=== PATIENT | male | born 1960 | race Caucasian/White ===

== ENCOUNTER 2017-05-31 17:17 | Inpatient (IN) | payer MEDICAID ==
[~2017-05-31] VITALS: Ht 180.3 cm; Wt 96.3 kg
[2017-05-31 18:14] LABS: microscopic required? YES; urine erythrocyte 3+ (NEGATIVE)
[2017-05-31 18:18] LABS: BASOPHIL % 0.1 % (0-2); PLATELET COUNT 146 x10^3mcL (130-400)
[2017-05-31 18:20] LABS: RED CELL DISTRIBUTION WIDTH 15.4 % (11.5-14.5)
[2017-05-31 18:22] LABS: CALCIUM 7.6 mg/dL (8.5-10.1); CARBON DIOXIDE 24.6 mmol/L (21-32); CHLORIDE SERUM 103 mmol/L (98-107); CREATININE SERUM 1.1 mg/dL (0.7-1.3); GFR1 > 60 mL/min; GLUCOSE SERUM 108 mg/dL (74-106); SODIUM SERUM 131 mmol/L (136-145)
[2017-05-31 18:27] LABS: ALBUMIN 1.9 g/dL (3.4-5.0); ALKALINE PHOSPHATASE 126 U/L (46-116); ALT/SGPT 34 U/L (16-63); AST/SGOT 53 U/L (15-37); BILIRUBIN TOTAL 2.59 mg/dL (0.20-1.00); TOTAL PROTEIN, SERUM 7.4 g/dL (6.4-8.2)
[2017-05-31 20:35] VITALS: BP 170/83
[2017-05-31 20:37] LABS: AMPHETAMINE QUAL UR POSITIVE (NEG <=1000)
[2017-05-31 20:40] LABS: MAGNESIUM 1.9 mg/dL (1.8-2.4); PHOSPHOROUS 1.7 mg/dL (2.5-4.9)
[2017-05-31 20:43] LABS: CHOLESTEROL/HDL RATIO 4.2
[2017-05-31 20:45] LABS: T3 TOTAL 0.76 ng/mL
[2017-05-31 20:50] LABS: FREE T4 1.22 ng/dL (0.76-1.46); FREE THYROXINE INDEX 2.1 ug/dL (1.4-4.5); T4(THYROXINE) 6.2 ug/dL (4.7-13.3)
[2017-06-01 05:30] VITALS: BP 138/67
[2017-06-01 07:22] LABS: CALCIUM 7.3 mg/dL (8.5-10.1); CARBON DIOXIDE 21.3 mmol/L (21-32); CHLORIDE SERUM 104 mmol/L (98-107); GFR1 > 60 mL/min; GLUCOSE SERUM 100 mg/dL (74-106); MAGNESIUM 1.7 mg/dL (1.8-2.4); PHOSPHOROUS 2.2 mg/dL (2.5-4.9); SODIUM SERUM 131 mmol/L (136-145)
[2017-06-01 08:21] LABS: PLATELET COUNT 136 x10^3mcL (130-400); RED CELL DISTRIBUTION WIDTH 15.5 % (11.5-14.5)
[2017-06-01 09:35] VITALS: BP 123/70
[2017-06-01 10:54] LABS: BAND NEUTROPHIL 2 % (0-10); BASOPHIL 0 % (0-2); MONOCYTE 11 % (0-7); PLATELET MORPHOLOGY PLATELETS NORMAL; SEGMENTED NEUTROPHILS 83 % (37-75)
[2017-06-01 17:36] VITALS: BP 114/61
[2017-06-01 21:50] VITALS: BP 124/66
[2017-06-01 22:50] VITALS: BP 130/70
[2017-06-02 05:56] VITALS: BP 103/51
[2017-06-02 06:23] LABS: BASOPHIL % 0.1 % (0-2); PLATELET COUNT 142 x10^3mcL (130-400)
[2017-06-02 06:41] LABS: RED CELL DISTRIBUTION WIDTH 15.8 % (11.5-14.5)
[2017-06-02 06:48] LABS: CALCIUM 7.2 mg/dL (8.5-10.1); CARBON DIOXIDE 24.8 mmol/L (21-32); CHLORIDE SERUM 107 mmol/L (98-107); CREATININE SERUM 0.9 mg/dL (0.7-1.3); GFR1 > 60 mL/min; GLUCOSE SERUM 123 mg/dL (74-106); PHOSPHOROUS 1.8 mg/dL (2.5-4.9); POTASSIUM SERUM 3.9 mmol/L (3.5-5.1); SODIUM SERUM 135 mmol/L (136-145)
[2017-06-02 09:41] VITALS: BP 117/56
[2017-06-02 15:05] VITALS: Ht 180.3 cm; Wt 96.3 kg
[2017-06-02 16:29] VITALS: BP 133/75
[2017-06-03 06:15] VITALS: BP 131/72
[2017-06-03 06:38] LABS: BASOPHIL % 0.2 % (0-2); PLATELET COUNT 152 x10^3mcL (130-400); RED BLOOD CELLS 3.95 M/mm3 (4.52-5.90)
[2017-06-03 07:56] LABS: IRON 43 ug/dL (65-170)
[2017-06-03 08:01] LABS: TOTAL IRON BINDING CAPACITY 103 ug/dL (250-450)
[2017-06-03 08:50] VITALS: BP 108/56
[2017-06-03 09:18] LABS: CALCIUM 7.2 mg/dL (8.5-10.1); CARBON DIOXIDE 23.2 mmol/L (21-32); CHLORIDE SERUM 111 mmol/L (98-107); CREATININE SERUM 0.9 mg/dL (0.7-1.3); GFR1 > 60 mL/min; GLUCOSE SERUM 104 mg/dL (74-106); MAGNESIUM 1.8 mg/dL (1.8-2.4); PHOSPHOROUS 2.2 mg/dL (2.5-4.9); POTASSIUM SERUM 4.5 mmol/L (3.5-5.1); SODIUM SERUM 139 mmol/L (136-145)
== END 2017-06-03 12:23 | disposition left against medical advice (07) | DRG 720 ==
LOC: ED 17:17 → DU 19:48 → MU 06-01 11:20
PROVIDERS: Emergency Medicine; Family Medicine Sports Medicine; ADMIT Family Medicine
DX: A41.9 Sepsis, unspecified organism (principal); N17.0 Acute kidney failure with tubular necrosis; E43 Unspecified severe protein-calorie malnutrition; K76.6 Portal hypertension; E87.1 Hypo-osmolality and hyponatremia; E83.39 Other disorders of phosphorus metabolism; E83.42 Hypomagnesemia; C64.9 Malignant neoplasm of unspecified kidney, except renal pelvis; K74.69 Other cirrhosis of liver; R65.20 Severe sepsis without septic shock; E83.51 Hypocalcemia; B96.20 Unspecified Escherichia coli [E. coli] as the cause of diseases classified elsewhere; N12 Tubulo-interstitial nephritis, not specified as acute or chronic; R31.9 Hematuria, unspecified; R91.8 Other nonspecific abnormal finding of lung field; I16.0 Hypertensive urgency; B19.20 Unspecified viral hepatitis C without hepatic coma; K21.9 Gastro-esophageal reflux disease without esophagitis; D64.9 Anemia, unspecified; F15.10 Other stimulant abuse, uncomplicated; F12.10 Cannabis abuse, uncomplicated; F17.210 Nicotine dependence, cigarettes, uncomplicated; Z68.29 Body mass index [BMI] 29.0-29.9, adult; Z16.24 Resistance to multiple antibiotics; Z91.19 Patient's noncompliance with other medical treatment and regimen
CPT/HCPCS: 76770; 83880; 84439; 90658; J0696; J3490; J7030; Q0092; Q9963; Q9967

== ENCOUNTER → 2017-06-16 | Outpatient (CLI) | payer MEDICAID | END | disposition home or self-care (01) | LOC: NM 06-08 10:00 | DX: R16.0 Hepatomegaly, not elsewhere classified (principal); N28.89 Other specified disorders of kidney and ureter ==